=== PATIENT | female | born 1985 | race Asian ===

== ENCOUNTER 2018-11-06 14:39 | Inpatient (IN) | payer BC ==
[~2018-11-06] VITALS: Ht 160 cm; Wt 63.5 kg
[2018-11-06] MEDS ORDERED: SODIUM CHLORIDE 0.9% 1,000 ML IV ONE (14:57)
[2018-11-06] MEDS ORDERED: ONDANSETRON 4MG ODT PO STA (15:03)
[2018-11-06] MEDS ORDERED: SODIUM CHLORIDE 0.9% 1000ML BAG (SEPSIS BOLUS) IV ONE (15:15)
[2018-11-06] MEDS ORDERED: CEFTRIAXONE 1 G PREMIX 50 ML IV ONE (15:15)
[2018-11-06 15:28] LABS: BG BASE EXCESS -2.2 mmol/L (-2.0-2.0); BG CARBOXYHEMOGLOBIN 0.4 % (0.5-1.5); BG DEOXYHEMOGLOBIN 6.2 % (0.0-5.0); BG HCO3 ACT 20.3 mmol/L (22.0-26.0); BG METHEMOGLOBIN 0.3 % (0.0-1.5); BG OXYGEN SATURATION 93.8 % (92.0-98.5); BG OXYHEMOGLOBIN 93.1 % (94.0-97.0); BG PCO2 28.6 mmHg (35.0-45.0); BG PH 7.468 (7.350-7.450); BG PO2 68.5 mmHg (75.0-100.0); BG SAMPLE SITE RIGHT RADIAL; BG TOTAL HEMOGLOBIN 13.4 g/dL (12.0-18.0); BG VENT MODE ROOM AIR
[2018-11-06 16:11] LABS: BASOPHILS % 0.4 % (0.0-2.0); CHLORIDE 111 mEq/L (98-107); EOSINOPHILS % 4.4 % (0.0-5.0); HEMATOCRIT. 32.8 % (36.0-48.0); HEMOGLOBIN. 11.3 g/dL (12.0-16.0); LYMPHOCYTES % 14.1 % (20.0-50.0); MEAN CORPUSCULAR VOLUME 81.6 fL (81.0-99.0); MONOCYTES % 5.8 % (2.0-8.0); NEUTROPHILS % 75.3 % (40.0-76.0); PLATELET 268 x1000/uL (130-400); RED BLOOD CELL COUNT 4.02 mill/uL (4.2-5.4); RED CELL DISTRIBUTION WIDTH 13.2 % (11.6-14.6)
[2018-11-06] MEDS ORDERED: SODIUM CHLORIDE 0.9% 500 ML IV ONE (19:45)
[2018-11-06] MEDS ORDERED: ACETAMINOPHEN 500MG TABLET PO ONE (21:00)
[2018-11-06] MEDS ORDERED: HEPARIN 5000 UNITS/ML VIAL IV ONE (22:15)
[2018-11-07] MEDS ORDERED: IOHEXOL-350 100 ML BOTTLE ONE (01:29)
[2018-11-07] MEDS ORDERED: ACETAMINOPHEN WITH CODEINE 120-12MG/5ML UDC PO ONE (02:45)
[2018-11-07 03:55] VITALS: BP 112/85
[2018-11-07 04:00] VITALS: BP 112/85
[2018-11-07] MEDS ORDERED: DOXY1TAB6 PO (04:49)
[2018-11-07] MEDS ORDERED: CETI10CA2 PO (04:50)
[2018-11-07] MEDS ORDERED: IPRA4AER INH (04:51)
[2018-11-07] MEDS ORDERED: BENZ100C86 PO (04:52)
[2018-11-07] MEDS ORDERED: ACETAMINOPHEN 325MG TABLET PO PRN (05:00)
[2018-11-07] MEDS ORDERED: DIPHENHYDRAMINE 50MG/ML VIAL IV PRN (05:00)
[2018-11-07] MEDS ORDERED: DOCUSATE SODIUM 100MG CAPSULE PO PRN (05:00)
[2018-11-07] MEDS ORDERED: IPRATROPIUM/ALBUTEROL 0.5-3(2.5)MG/3ML NEB INH PRN (05:00)
[2018-11-07] MEDS ORDERED: MAGNESIUM/ALUMINUM HYDROXIDE/SIMETHICONE 30ML UDC PO PRN (05:00)
[2018-11-07] MEDS ORDERED: ONDANSETRON HCL 4MG/2ML INJ IV PRN (05:00)
[2018-11-07] MEDS ORDERED: POTASSIUM CHLORIDE 20MEQ TABLET SR PO NR ×2 (05:00→14:39)
[2018-11-07] MEDS: SODIUM CHLORIDE 0.9% INJ 3ML FLUSH IVF SCH ×2 (05:52→14:00)
[2018-11-07] MEDS: GUAIFENESIN 200MG/10ML SUGAR FREE UDC PO PRN ×2 (05:56→13:22)
[2018-11-07 08:00] VITALS: BP 109/64
[2018-11-07 10:09] LABS: T4 FREE 1.35 ng/dL (0.76-1.46)
[2018-11-07 12:00] VITALS: BP 101/54
[2018-11-07 15:32] VITALS: BP 109/64
[2018-11-07] MEDS ORDERED: FLUT9.9S BOTHNSTRLS (15:32)
== END 2018-11-07 16:03 | disposition home or self-care (01) | DRG 831 ==
LOC: ER 14:39 → 5WST 11-07 02:43 → EDBEDREQTM 11-07 02:48 → EDBEDREQDT 11-07 02:48 → EDBEDREQSVC 11-07 02:48 → EDBEDREQ 11-07 02:48 → ENRESERV 11-07 03:17 → 7WST 11-07 05:26
PROVIDERS: ADMIT Internal Medicine; ATTEND Internal Medicine
DX: O99.512 Diseases of the respiratory system complicating pregnancy, second trimester (principal); J96.00 Acute respiratory failure, unspecified whether with hypoxia or hypercapnia; J98.01 Acute bronchospasm; J00 Acute nasopharyngitis [common cold]; Z3A.18 18 weeks gestation of pregnancy
CPT/HCPCS: 36415; 36600; 71275; 76805; 82375; 82805; 83605; 83735; 83880; 84439; 84443; 84484; 85379; 87804; 93005; 93306; J0696; J7030; J7040; Q0162; Q9967